=== PATIENT | female | born 1950 | race Caucasian/White ===

== ENCOUNTER 2017-02-25 11:16 | Emergency (ER) | payer MEDICARE, OTHER ==
[~2017-02-25] VITALS: Ht 165.1 cm; Wt 64.5 kg
[2017-02-25] MEDS ORDERED: SODIUM CHLORIDE FLUSH 10ML SYR IVF ONE (12:00)
[2017-02-25 12:13] LABS: BASOPHILS # (AUTO) 0.06 x10^3/uL (0-0.1); BASOPHILS % (AUTO) 1 % (0-1); EOSINOPHILS # (AUTO) 0.07 x10^3/uL (0-0.4); EOSINOPHILS % (AUTO) 1 % (1-7); LYMPHOCYTES # (AUTO) 3.49 x10^3/uL (1-3.4); LYMPHOCYTES % (AUTO) 41 % (22-44); MD NO; MEAN CORPUSCULAR HEMOGLOBIN 30.7 pg (27.0-34.8); MEAN CORPUSCULAR HGB CONC 33.2 g/dL (32.4-35.8); MEAN CORPUSCULAR VOLUME 92.5 fL (80-100); MEAN PLATELET VOLUME 8.7 fL (7.4-10.4); MONOCYTES # (AUTO) 0.38 x10^3/uL (0.2-0.8); MONOCYTES % (AUTO) 4 % (2-9); NEUTROPHILS # (AUTO) 4.57 x10^3/uL (1.8-6.8); NEUTROPHILS % (AUTO) 53 % (42-75); PLATELET COUNT 234 x10^3/uL (130-400); RED CELL DISTRIBUTION WIDTH 13.4 % (9.6-15.2)
[2017-02-25 12:19] LABS: ALBUMIN 3.8 g/dL (3.4-5.0); ANION GAP 10 mmol/L (5-15); CALCIUM 9.4 mg/dL (8.5-10.1); CHLORIDE 111 mmol/L (98-107); CREATININE 0.96 mg/dL (0.55-1.02)
[2017-02-25] MEDS ORDERED: PROPOFOL 10 MG/ML, 20ML ONE (12:36)
[2017-02-25] MEDS ORDERED: HYDROcodone/APAP 5/325 TABLET PO ONE (13:00)
[2017-02-25] MEDS ORDERED: PROPOFOL 10 MG/ML, 20ML IVPush ONE (13:00)
[2017-02-25] MEDS ORDERED: HYDROcodone/APAP 5/325 TABLET ONE (13:33)
[2017-02-25 14:51] VITALS: BP 123/61
== END 2017-02-25 14:55 | disposition home or self-care (01) ==
LOC: ED 12:42
DX: S52.602A Unspecified fracture of lower end of left ulna, initial encounter for closed fracture (principal); S52.502A Unspecified fracture of the lower end of left radius, initial encounter for closed fracture; W01.0XXA Fall on same level from slipping, tripping and stumbling without subsequent striking against object, initial encounter; Y93.89 Activity, other specified; Y92.480 Sidewalk as the place of occurrence of the external cause; Y99.8 Other external cause status
CPT/HCPCS: 25605; 36415; 80048; 82040; 85025; 99152; 99153

== ENCOUNTER 2018-01-31 14:10 | Emergency (ER) | payer MEDICARE, OTHER ==
[~2018-01-31] VITALS: Ht 162.6 cm; Wt 71.3 kg
[2018-01-31] MEDS ORDERED: PROPARACAINE OPHTH 0.5%, 15ML EACHEYE ONE (15:00)
[2018-01-31] MEDS ORDERED: PROPARACAINE OPHTH 0.5%, 15ML ONE (15:22)
[2018-01-31] MEDS ORDERED: PHENYLEPHRINE OPHTH 2.5%, 2.5ML EACHEYE ONE (15:30)
[2018-01-31] MEDS ORDERED: TROPICAMIDE OPHTH 1%, 15ML OP ONE (15:30)
[2018-01-31] MEDS ORDERED: TROPICAMIDE 0.5% OP ONE (16:30)
[2018-01-31 17:53] VITALS: BP 128/68
== END 2018-01-31 17:55 | disposition home or self-care (01) ==
LOC: ED 14:54
DX: H43.11 Vitreous hemorrhage, right eye (principal)
CPT/HCPCS: 99283